=== PATIENT | male | born 1965 | race Caucasian/White ===

== ENCOUNTER 2018-07-25 01:27 | Day surgery (SDC) | payer BC ==
[~2018-07-25] VITALS: Ht 188 cm; Wt 81.6 kg
[~2018-07-25 01:27] MED LIST: HYDR-653 PO; IBU600 PO; LEVO-85 PO; LISI-362 PO; LOR5 PO; PROM-110 PO
[2018-07-25 07:36] VITALS: BP 159/87
--- NOTE | 2018-07-25 07:41 | EKG ---
FACILITY: [facility] PATIENT NAME: TAMMY CARRION : [id number] MR: [id number]: [id number] EXAM DATE: ORDERING PHYSICIAN: ANISHA JONES TECHNOLOGIST: CRISTELA Mtz Reason : PRE-OP Blood Pressure : / mmHG Vent. Rate : 087 BPM Atrial Rate : 087 BPM P-R Int : 178 ms QRS Dur : 100 ms QT Int : 372 ms P-R-T Axes : 061 -48 035 degrees QTc Int : 447 ms Normal sinus rhythm Left anterior fascicular block No ST-T abnormalities When compared with ECG of 01-APR-2016 21:52, No significant change was found Confirmed by ELLIOTT MCLAUGHLIN ([id number]) on 07/25/2018 2:00:45 PM Referred By: LACEY Confirmed By:ELLIOTT MCLAUGHLIN
[2018-07-25] MEDS ORDERED: fentaNYL CITR 250 MCG/5 ML AMP ONE (07:43)
[2018-07-25] MEDS ORDERED: LIDOCAINE MPF 1% 5 ML VIAL ONE (07:44)
[2018-07-25] MEDS ORDERED: DEXAMETHASONE SOD PHOS 10MG/ML ONE (07:44)
[2018-07-25] MEDS ORDERED: SUGAMMADEX SOD 200 MG/2 ML SDV ONE (07:44)
[2018-07-25] MEDS ORDERED: PROPOFOL EMUL(*) 10MG/ML 20 ML 20 ML ONE (07:44)
[2018-07-25] MEDS ORDERED: ONDANSETRON 4 MG/2 ML VIAL ONE (07:44)
[2018-07-25] MEDS ORDERED: KETAMINE HCL 200 MG/20 ML MDV ONE (07:47)
[2018-07-25 08:14] LABS: PLATELET COUNT, AUTOMATED 186 K/uL (150-450)
[2018-07-25] MEDS ORDERED: LIDOCAINE/SOD BICARB 8.4% SYR ID ONE (08:55)
[2018-07-25] MEDS ORDERED: FAMOTIDINE 20 MG TAB PO ONE (08:55)
[2018-07-25] MEDS ORDERED: ceFAZolin(*) 2GM/D5W 50ML 50 ML IVPB ONE (08:55)
[2018-07-25] MEDS ORDERED: MIDAZOLAM 2 MG/2 ML VIAL IVP PRN (08:55)
[2018-07-25] MEDS ORDERED: NORMOSOL R SOLN(*) 1000 ML BAG 1,000 ML IV PRN (08:55)
[2018-07-25] MEDS ORDERED: BUPIVACAINE/EPI 0.5% 50ML VIAL INFIL ONE (08:56)
[2018-07-25] MEDS ORDERED: fentaNYL CITR 100 MCG/2 ML AMP ONE (10:47)
[2018-07-25] MEDS ORDERED: KETOROLAC 30 MG/ML VIAL ONE (11:03)
[2018-07-25 12:00] VITALS: BP 132/73
[2018-07-25] MEDS ORDERED: TRAM-420 PO (12:09)
--- NOTE | 2018-07-25 12:11 | Short(Outpt) Discharge Summary ---
Discharge Summary Reason for Hosp/Final Diag: (1) Hernia Hospital Course & Plan: pt presented for hernia repair. he tolerated the surgery well. he will be discharged home when criteria met. Discharge Instructions Home Meds Active Scripts Tramadol Hcl (TRAMADOL HCL) 50 Mg Tablet, 50 MG PO Q4H PRN for PAIN, #20 TAB Prov:AVANI GEORGE 07/25/18 Reported Medications Lisinopril (LISINOPRIL) 10 Mg Tablet, 10 MG PO QDAY 08/02/14 Diet: Regular Activity: No Heavy Lifting Special Instructions: no lifting more than 15 lbs for 3 wks. ok to shower tomorrow. take stool softener while taking pain meds. f/u dr. helder george 2 wks ([phone]). AVANI GEORGE July 25, 2018 12:11
--- NOTE | 2018-07-25 12:12 | Post Operative Progress Note ---
Post Operative Progress Note Date: July 25, 2018 Time: 12:11 Surgeon: dr. helder george Privacy Attorney: none Anesthesia: gen, local dr. de Pre-Op Diagnosis: bilat ing hernia Post-Op Diagnosis: same Procedure(s): robot bilat ing hernia repair with mesh Complications: none Estimated Blood Loss: minimal AVANI GEORGE July 25, 2018 12:12
[2018-07-25 12:15] VITALS: BP 128/75
[2018-07-25] MEDS ORDERED: traMADol 50 MG TAB PO ONE (12:25)
[2018-07-25 12:45] VITALS: BP 131/78
--- NOTE | 2018-07-25 13:05 | NUR ---
1200 SBAR REPORT WAS RECEIVED FROM PEDRO SILVA RN. PATIENT IS ARRIVED ON 3 LITERS NASAL CANNULA THAT WAS TURNED TO 1 LITER ON ARRIVAL. BOWEL SOUNDS ARE HYPERACTIVE. HE DENIES ANY NAUSEA AND STATES HIS PAIN IS 5/10. HE HAS 3 INCISIONS ON THE LOWER QUADRANTS OF ABDOMEN. TWO ARE COVERED WITH DERMABOND AND ARE DRY AND INTACT. THE INCISION IN THE L. LOWER QUADRANT IS COVERED WITH PRIMAPORE AND HAS A SMALL AMOUNT OF BLEEDING THAT IS AN INCH LONG. HE IS DRINKING OJ CURRENTLY. 1210 WAS BROUGHT INTO THE ROOM 1245 PATIENT IS RESTING COMFORTABLY IN THE BED. 1250 PATIENT WAS MOVED TO ROOM AIR AND ICE PACK WAS FILLED BACK UP. 1300 SBAR REPORT WAS GIVEN TO Laz THURSTON RN. 1305 IV WAS SALINE LOCKED
[2018-07-25 13:20] VITALS: BP 134/80
[2018-07-25 13:25] VITALS: BP 124/75
--- NOTE | 2018-07-25 14:18 | NUR ---
1320- PT. STATES THAT HE IS READY TO HEAD HOME SO ORTHOSTATICS PREFORMED. 1327- PT. GETTING DRESSED. 1330- D/C INSTRUCTIONS GONE OVER WITH PT. AND FAMILY. 1336- IV TAKEN OUT AND PRESSURE DRESSING APPLIED. 1345- PT. ACCOMPANIED OUT TO VEHICLE VIA WHEELCHAIR BY ALESSIA BARRON AND FAMILY. SEE DISCHARGE ASSESSMENT.
--- NOTE | 2018-07-26 08:52 | OPERATIVE REPORT 1 ---
EVENT DATE: July 25, 2018 SURGEON: Constantin Bowers MD ANESTHESIOLOGIST: Robbin Carrasco MD ANESTHESIA: General with local. QUALITY SYSTEMS SPECIALIST: None. PREOPERATIVE DIAGNOSIS Bilateral inguinal hernias. POSTOPERATIVE DIAGNOSIS Bilateral inguinal hernias. PROCEDURE PERFORMED Robotic bilateral inguinal hernia repair with mesh. ESTIMATED BLOOD LOSS Minimal. SPECIMENS None. COMPLICATIONS None. INDICATIONS This is a 53-year old male with a medium sized left inguinal hernia that is bothersome to him. On physical exam, he also has a smaller right inguinal hernia. Risks and benefits of the procedure were explained and consent was signed. DESCRIPTION OF PROCEDURE The patient was taken to the operating room and placed in the supine position. General anesthesia was administered per the Anesthesia team. The patient was prepped and draped in normal sterile fashion. Local anesthesia was injected into the dermis above the umbilicus and a small incision was made. The umbilical stump was grasped and elevated. A Veress needle was inserted. Pneumoperitoneum was achieved. Veress needle was removed. An 8 mm port was advanced. I inspected the abdomen. There was no injury upon entry. After injecting local analgesia and under direct vision, a right sided 8 mm port and a left sided 8 mm port were placed. The patient had a medium sized indirect left inguinal hernia and a small to medium direct right inguinal hernia and a very small right indirect inguinal hernia. The mesh was placed in the abdomen as well as the V-Loc stitches. The robot was then docked. Peritoneal flap was created on the right and the hernia defects were reduced. This was taken down to Vinh's ligament and below the level of the iliopubic tract. Care was taken to protect the cord structures and the inferior epigastric vessels. Hemostasis was assured. Peritoneal flap was then created on the left. The distal aspect of the sac was divided and left open distally. This was taken down again to Vinh's ligament and below the level of the iliopubic tract. Again, care was taken to protect the cord structures and the inferior epigastric vessels. 15 x 10 ProGrip right and left sided meshes were placed and made to lie flat. The myopectineal orifice was covered on both sides. Again, hemostasis was assured. The flaps were reapproximated with absorbable V-Loc stitches. There was no hole on the left that needed to be repaired with an extra stitch. There was a peritoneal defect on the right and this was closed with a running 3-0 Vicryl stitch. Ports were removed under direct vision. Hemostasis was assured. Pneumoperitoneum was relieved. Final port was removed. All skin incisions were closed with 4-0 Monocryl subcuticular stitches. More local analgesia was injected. Tapblocks had also been injected under laparoscopic vision. Appropriate dressings were applied. The patient tolerated the procedure well. There were no complications. JOJO
== END 2018-07-25 12:00 | disposition home or self-care (01) ==
LOC: OR 01:27
PROVIDERS: ATTEND Surgery
DX: K40.20 Bilateral inguinal hernia, without obstruction or gangrene, not specified as recurrent (principal); I44.4 Left anterior fascicular block; I10 Essential (primary) hypertension
CPT/HCPCS: 36415; 49650; 85025; 93005; C1781; J1100; J1885; J2001; J2250; J2405; J2704; J3010; J3490; S2900; J0690